=== PATIENT | male | born 1965 | race Caucasian/White ===

== ENCOUNTER 2017-11-24 16:26 | Emergency (ER) | payer OTHER ==
--- NOTE | 2017-11-24 18:04 | EDM.PDOC ---
ED HPI GENERAL MEDICAL PROBLEM - General Chief Complaint: ENT Problem Stated Complaint: FEVER / COLD Time Seen by Provider: 11/24/17 17:50 Source of Information: Reports: Patient History Limitations: Reports: No Limitations - History of Present Illness INITIAL COMMENTS - FREE TEXT/NARRATIVE: 52 yo female presents with 7 day hx of nasal congestion, over the last 48 hours fever, and painful cough. facial pressure. does not smoke. No hx of asthma. Throat Pain Score (Numeric/FACES): 8 - Related Data Allergies Allergy/AdvReac Type Severity Reaction Status Date / Time No Known Allergies Allergy Verified 11/24/17 17:41 Home Meds: Home Meds Losartan [Cozaar] 100 mg PO DAILY 11/24/17 [History] Norethindrone AC-Eth Estradiol [Junel 1 mg-20 Mcg Tablet] 1 tab PO DAILY [History] amLODIPine Besylate [Norvasc] 1 tab PO DAILY 11/24/17 [History] Past Medical History Cardiovascular History: Reports: Hypertension Musculoskeletal History: Reports: Arthritis Social & Family History - Tobacco Use Smoking Status *Q: Never Smoker Second Hand Smoke Exposure: No - Caffeine Use Caffeine Use: Reports: Coffee, Soda - Alcohol Use Days Per Week of Alcohol Use: 4 Number of Drinks Per Day: 2 Total Drinks Per Week: 8 - Recreational Drug Use Recreational Drug Use: No ED ROS ENT - Review of Systems Review Of Systems: See Below Constitutional: Reports: Fever, Chills, Malaise, Fatigue HEENT: Reports: Rhinitis, Sinus Problem, Throat Pain. Denies: Ear Pain, Vertigo Respiratory: Reports: Cough. Denies: Shortness of Breath, Wheezing Cardiovascular: Denies: Chest Pain GI/Abdominal: Denies: Abdominal Pain, Diarrhea Skin: Denies: Rash ED EXAM, ENT - Physical Exam Exam: See Below Exam Limited By: No Limitations General Appearance: Alert, WD/WN, No Apparent Distress Ears: Normal External Exam, Normal Canal, Hearing Grossly Normal, Normal TMs Nose: Injected Turbinates Mouth/Throat: Pharyngeal Erythema, Throat Pain, Throat Swelling (mild), Tonsillar Erythema Head: Atraumatic, Normocephalic Neck: Normal Inspection, Supple, Non-Tender. No: Lymphadenopathy (R), Lymphadenopathy (L) Respiratory/Chest: No Respiratory Distress, Lungs Clear, Normal Breath Sounds. No: Crackles, Rhonchi, Wheezing Cardiovascular: Regular Rate, Rhythm Neurological: Alert, Oriented Skin: Warm, Dry, Intact Course - Vital Signs Last Recorded V/S: Last Vital Signs Temp 37.7 C 11/24/17 17:41 Pulse 110 H 11/24/17 17:41 Resp 18 11/24/17 17:41 BP 150/93 H 11/24/17 17:41 Pulse Ox 96 11/24/17 17:41 Departure - Departure Time of Disposition: 17:57 Disposition: Home, Self-Care 01 Condition: Good Clinical Impression: Sinusitis, acute Qualifiers: Sinusitis location: unspecified location Recurrence: non-recurrent Qualified Code(s): J01.90 - Acute sinusitis, unspecified - Discharge Information Instructions: Sinusitis, Adult, [id number] Referrals: PCP,None [Primary Care Provider] - Forms: ED Department Discharge Additional Instructions: Augmentin 875 mg twice daily for 5 days increase fluid intake with goal of 1.5-2 L per day symptomatic care
== END 2017-11-24 18:17 | disposition home or self-care (01) ==
LOC: JP.ED 16:26
DX: J01.90 Acute sinusitis, unspecified (principal); Z79.899 Other long term (current) drug therapy
CPT/HCPCS: 99283

== ENCOUNTER 2019-05-27 19:05 | Emergency (ER) | payer OTHER ==
[2019-05-27] MEDS ORDERED: LORazepam 0.5 MG Tab PO ONE (20:45)
--- NOTE | 2019-05-27 20:51 | EDM.PDOC ---
ED HPI GENERAL MEDICAL PROBLEM - General Chief Complaint: General Stated Complaint: SHAKY,UNSTEADY ON FEET,DIZZY Time Seen by Provider: 05/27/19 20:35 Source of Information: Reports: Patient, Family, RN History Limitations: Reports: Other (no access to most of her records) - History of Present Illness INITIAL COMMENTS - FREE TEXT/NARRATIVE: 53 yo female from [facility] has a cabin up here. She just got over being treated for pneumonia as an outpatient. Was told at her last visit that she had hyponatremia. Today has weakness and a total body tremor that are new. Here with her male significant other for this. 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: Other (see below) (none) - Related Data Allergies Allergy/AdvReac Type Severity Reaction Status Date / Time azithromycin Allergy Hives Verified 05/27/19 19:54 levofloxacin [From Levaquin] Allergy Hives Verified 05/27/19 19:54 Home Meds: Home Meds Losartan [Cozaar] 100 mg PO DAILY 11/24/17 [History] Norethindrone AC-Eth Estradiol [Junel 1 mg-20 Mcg Tablet] 1 tab PO DAILY [History] amLODIPine Besylate [Norvasc] 1 tab PO DAILY 11/24/17 [History] Escitalopram Oxalate [Lexapro] 20 mg PO DAILY 05/27/19 [History] Past Medical History Cardiovascular History: Reports: Hypertension Other Respiratory History: pneumonia Musculoskeletal History: Reports: Arthritis Psychiatric History: Reports: Anxiety Social & Family History - Tobacco Use Smoking Status *Q: Former Smoker Used Tobacco, but Quit: Yes Month/Year Tobacco Last Used: 12 years ago - Caffeine Use Caffeine Use: Reports: Soda - Recreational Drug Use Recreational Drug Use: No ED ROS GENERAL - Review of Systems Review Of Systems: See Below Constitutional: Reports: Weakness (generalized) HEENT: Reports: No Symptoms Respiratory: Reports: No Symptoms Cardiovascular: Reports: No Symptoms GI/Abdominal: Reports: No Symptoms : Reports: No Symptoms Musculoskeletal: Reports: No Symptoms Skin: Reports: No Symptoms Neurological: Reports: Tremors (generalized) Psychiatric: Reports: No Symptoms ED EXAM, GENERAL - Physical Exam Exam: See Below Exam Limited By: No Limitations General Appearance: Alert, WD/WN, No Apparent Distress Eye Exam: Bilateral Eye: Normal Inspection, PERRL Ears: Normal External Exam, Normal Canal, Hearing Grossly Normal Ear Exam: Bilateral Ear: Auricle Normal, Canal Normal Nose: Normal Inspection, No Blood Throat/Mouth: Normal Inspection, Normal Lips, Normal Oropharynx, Normal Voice, No Airway Compromise Head: Atraumatic, Normocephalic Neck: Normal Inspection Respiratory/Chest: No Respiratory Distress, Lungs Clear, Normal Breath Sounds, No Accessory Muscle Use Cardiovascular: Regular Rate, Rhythm, No Edema, Tachycardia GI/Abdominal: Normal Bowel Sounds, Soft, Non-Tender, No Distention Back Exam: Normal Inspection. No: CVA Tenderness (R), CVA Tenderness (L) Extremities: Normal Inspection, Normal Range of Motion, Non-Tender, No Pedal Edema Neurological: Alert, Oriented, CN II-XII Intact, Normal Cognition, No Motor/ Sensory Deficits, Other (total body tremors, no asterixis) Psychiatric: Normal Affect, Normal Mood Skin Exam: Warm, Dry, Intact, Normal Color, No Rash Course - Vital Signs Text/Narrative:: Feels a lot better after Ativan, admits now to almost daily alcohol consumption. Last Recorded V/S: Last Vital Signs Temp 36.5 C 05/27/19 19:50 Pulse 105 H 05/27/19 19:50 Resp 18 05/27/19 19:50 BP 189/107 H 05/27/19 19:50 Pulse Ox 99 05/27/19 19:50 - Orders/Labs/Meds Labs: Laboratory Tests 05/27/19 05/27/19 05/27/19 Range/Units 20:47 20:47 20:47 WBC 5.9 (4.5-11.0) K/uL RBC 4.16 L (4.30-5.90) M/uL Hgb 13.6 (12.0-15.0) g/dL Hct 40.1 (40.0-54.0) % MCV 96 (80-98) fL MCH 33 H (27-31) pg MCHC 34 (32-36) % Plt Count 210 (150-400) K/uL Sodium 132 L (140-148) mmol/L Potassium 3.4 L (3.6-5.2) mmol/L Chloride 94 L (100-108) mmol/L Carbon Dioxide 26 (21-32) mmol/L Anion Gap 15.4 H (5.0-14.0) mmol/L BUN 8 (7-18) mg/dL Creatinine 0.5 L (0.8-1.3) mg/dL Est Cr Clr Drug Dosing TNP Estimated GFR (MDRD) > 60 (>60) Glucose 116 H (74-106) mg/dL Calcium 9.1 (8.5-10.1) mg/dL Total Bilirubin 0.9 (0.2-1.0) mg/dL AST 39 H (15-37) U/L ALT 44 (12-78) U/L Alkaline Phosphatase 54 (46-116) U/L Total Protein 7.6 (6.4-8.2) g/dL Albumin 4.0 (3.4-5.0) g/dL Globulin 3.6 H (2.3-3.5) g/dL Albumin/Globulin Ratio 1.1 L (1.2-2.2) TSH, Ultra Sensitive 3.750 H (0.358-3.740) uIU/mL Meds: Medications Discontinued Medications Generic Name Dose Route Start Last Admin Trade Name Freq PRN Reason Stop Dose Admin Lorazepam 0.5 mg 05/27/19 20:45 05/27/19 20:53 Ativan PO 05/27/19 20:46 0.5 mg ONETIME ONE Administration Thiamine HCl 100 mg 05/27/19 21:32 Vitamin B-1 PO 05/27/19 21:33 ONETIME ONE Departure - Departure Time of Disposition: 21:40 Disposition: Home, Self-Care 01 Condition: Fair Clinical Impression: Alcohol abuse - Discharge Information *PRESCRIPTION DRUG MONITORING PROGRAM REVIEWED*: No *COPY OF PRESCRIPTION DRUG MONITORING REPORT IN PATIENT RENETTA: No Referrals: PCP,None [Primary Care Provider] - Forms: ED Department Discharge Additional Instructions: Take a multiple vitamin or better yet a B-complex vitamin daily. Use lorazepam as directed for shakes. Recheck with your doctor PAULA. Consider detox for alcohol withdrawal. No alcohol going forward. Recheck as needed.
[2019-05-27] MEDS ORDERED: Thiamine 100 MG Tab PO ONE (21:32)
== END 2019-05-27 21:55 | disposition home or self-care (01) ==
LOC: JP.ED 19:05
DX: F10.10 Alcohol abuse, uncomplicated (principal); Y90.9 Presence of alcohol in blood, level not specified; I10 Essential (primary) hypertension; F41.9 Anxiety disorder, unspecified; Z79.899 Other long term (current) drug therapy; Z87.891 Personal history of nicotine dependence; Z88.1 Allergy status to other antibiotic agents
CPT/HCPCS: 36415; 80053; 84443; 85027; 99284; A9270

== ENCOUNTER 2020-02-26 15:22 | Emergency (ER) | payer OTHER ==
--- NOTE | 2020-02-26 16:00 | EDM.PDOC ---
ED HPI GENERAL MEDICAL PROBLEM - General Chief Complaint: Drug or Alcohol Abuse Stated Complaint: MEDICAL [facility]IA [facility] Time Seen by Provider: 02/26/20 15:59 Source of Information: Reports: Patient History Limitations: Reports: No Limitations, Intoxication - History of Present Illness INITIAL COMMENTS - FREE TEXT/NARRATIVE: 54 years old female patient brought in by ambulance for evaluation. Patient was drinking heavily today. Then [place]. Tripped and fell down. Denies hitting her head. No loss of consciousness. Some people at the stable called ambulance to bring her in for evaluation. Denies any seizure activity. Denies any headache or visual changes. Denies any focal weakness or numbness anywhere. Denies any neck pain or back pain. Denies any chest pain shortness breath. Denies any cough or fever. Denies any abdominal pain diarrhea or constipation. Denies any urinary symptom. Denies any drug use. Denies any suicidal or homicidal thoughts. - Related Data Allergies Allergy/AdvReac Type Severity Reaction Status Date / Time azithromycin Allergy Hives Verified 02/26/20 15:32 levofloxacin [From Levaquin] Allergy Hives Verified 02/26/20 15:32 Home Meds: Home Meds Losartan [Cozaar] 100 mg PO DAILY 11/24/17 [History] amLODIPine Besylate [Norvasc] 1 tab PO DAILY 11/24/17 [History] Escitalopram Oxalate [Lexapro] 20 mg PO DAILY 05/27/19 [History] Past Medical History HEENT History: Reports: None Cardiovascular History: Reports: Hypertension Other Respiratory History: pneumonia Gastrointestinal History: Reports: None Genitourinary History: Reports: None Musculoskeletal History: Reports: Arthritis Neurological History: Reports: None Psychiatric History: Reports: Addiction, Anxiety Other Psychiatric History: ETOH Endocrine/Metabolic History: Reports: None Hematologic History: Reports: None Immunologic History: Reports: None Oncologic (Cancer) History: Reports: None Dermatologic History: Reports: None - Infectious Disease History Infectious Disease History: Reports: Chicken Pox - Past Surgical History Head Surgeries/Procedures: Reports: None Social & Family History - Tobacco Use Smoking Status *Q: Former Smoker Used Tobacco, but Quit: Yes Month/Year Tobacco Last Used: 13 years ago Tobacco Use Comment: chews nicotine gum - Caffeine Use Caffeine Use: Reports: Soda - Alcohol Use Date of Last Drink: 02/26/20 Time of Last Drink: 12:00 - Recreational Drug Use Recreational Drug Use: No ED ROS GENERAL - Review of Systems Review Of Systems: Comprehensive ROS is negative, except as noted in HPI. - Physical Exam Exam: See Below Exam Limited By: No Limitations General Appearance: Alert, WD/WN, No Apparent Distress Ears: Normal External Exam, Normal Canal, Hearing Grossly Normal, Normal TMs Nose: Normal Inspection, Normal Mucosa, No Blood Throat/Mouth: Normal Inspection, Normal Lips, Normal Teeth, Normal Gums, Normal Oropharynx, Normal Voice, No Airway Compromise Head Exam: Atraumatic, Normocephalic Neck: Normal Inspection, Supple, Non-Tender, Full Range of Motion Respiratory/Chest: No Respiratory Distress, Lungs Clear, Normal Breath Sounds, No Accessory Muscle Use, Chest Non-Tender Cardiovascular: Normal Peripheral Pulses, Regular Rate, Rhythm, No Edema, No Gallop, No JVD, No Murmur, No Rub GI/Abdominal: Normal Bowel Sounds, Soft, Non-Tender, No Organomegaly, No Distention, No Abnormal Bruit, No Mass Neuro Exam (Abbreviated): Alert, Oriented, CN II-XII Intact, Normal Cognition, Normal Gait, Normal Reflexes, No Motor/Sensory Deficits Back Exam: Normal Inspection, Full Range of Motion, NT Extremities: Normal Inspection, Normal Range of Motion, Non-Tender, No Pedal Edema, Normal Capillary Refill Skin Exam: Warm, Dry, Intact, Normal Color, No Rash Course - Vital Signs Last Recorded V/S: Last Vital Signs Temp 36.1 C 02/26/20 15:27 Pulse 69 02/26/20 16:51 Resp 16 02/26/20 16:51 BP 132/80 02/26/20 16:51 Pulse Ox 97 02/26/20 16:51 - Orders/Labs/Meds Orders: Active Orders 24 hr Category Date Time Status Sodium Chloride 0.9% [Normal Saline] 1,000 ml Med 02/26/20 16:15 Active IV .BOLUS Medication Orders Sodium Chloride (Normal Saline) 1,000 mls @ 500 mls/hr IV .BOLUS ZACH Last Admin: 02/26/20 16:45 Dose: 500 mls/hr Documented by: PREILOR Labs: Laboratory Tests 02/26/20 02/26/20 02/26/20 Range/Units 16:20 16:20 16:20 WBC 6.0 (4.5-11.0) K/uL RBC 4.49 (4.30-5.90) M/uL Hgb 14.5 (12.0-15.0) g/dL Hct 42.6 (40.0-54.0) % MCV 95 (80-98) fL MCH 32 H (27-31) pg MCHC 34 (32-36) % Plt Count 265 (150-400) K/uL Neut % (Auto) 69 H (36-66) % Lymph % (Auto) 24 (24-44) % [place] % (Auto) 6 (2-6) % Eos % (Auto) 1 L (2-4) % Baso % (Auto) 0 (0-1) % Sodium 136 L (140-148) mmol/L Potassium 4.0 (3.6-5.2) mmol/L Chloride 98 L (100-108) mmol/L Carbon Dioxide 27 (21-32) mmol/L Anion Gap 15.0 H (5.0-14.0) mmol/L BUN 17 D (7-18) mg/dL Creatinine 0.8 D (0.8-1.3) mg/dL Est Cr Clr Drug Dosing 107.28 mL/min Estimated GFR (MDRD) > 60 (>60) Glucose 93 (74-106) mg/dL Calcium 8.6 (8.5-10.1) mg/dL Salicylates 0.8 L (2.0-20.0) mg/dL Urine Opiates Screen (NEGATIVE) Ur Oxycodone Screen (NEGATIVE) Urine Methadone Screen (NEGATIVE) Ur Propoxyphene Screen (NEGATIVE) Acetaminophen 0.0 L (10.0-30.0) ug/mL Ur Barbiturates Screen (NEGATIVE) Ur Tricyclics Screen (NEGATIVE) Ur Phencyclidine Scrn (NEGATIVE) Ur Amphetamine Screen (NEGATIVE) U Methamphetamines Scrn (NEGATIVE) Urine MDMA Screen (NEGATIVE) U Benzodiazepines Scrn (NEGATIVE) U Cocaine Metab Screen (NEGATIVE) U Marijuana (THC) Screen (NEGATIVE) Ethyl Alcohol mg/dL 02/26/20 02/26/20 Range/Units 16:20 17:23 WBC (4.5-11.0) K/uL RBC (4.30-5.90) M/uL Hgb (12.0-15.0) g/dL Hct (40.0-54.0) % MCV (80-98) fL MCH (27-31) pg MCHC (32-36) % Plt Count (150-400) K/uL Neut % (Auto) (36-66) % Lymph % (Auto) (24-44) % [place] % (Auto) (2-6) % Eos % (Auto) (2-4) % Baso % (Auto) (0-1) % Sodium (140-148) mmol/L Potassium (3.6-5.2) mmol/L Chloride (100-108) mmol/L Carbon Dioxide (21-32) mmol/L Anion Gap (5.0-14.0) mmol/L BUN (7-18) mg/dL Creatinine (0.8-1.3) mg/dL Est Cr Clr Drug Dosing mL/min Estimated GFR (MDRD) (>60) Glucose (74-106) mg/dL Calcium (8.5-10.1) mg/dL Salicylates (2.0-20.0) mg/dL Urine Opiates Screen Negative (NEGATIVE) Ur Oxycodone Screen Negative (NEGATIVE) Urine Methadone Screen Negative (NEGATIVE) Ur Propoxyphene Screen Negative (NEGATIVE) Acetaminophen (10.0-30.0) ug/mL Ur Barbiturates Screen Negative (NEGATIVE) Ur Tricyclics Screen Negative (NEGATIVE) Ur Phencyclidine Scrn Negative (NEGATIVE) Ur Amphetamine Screen Negative (NEGATIVE) U Methamphetamines Scrn Negative (NEGATIVE) Urine MDMA Screen Negative (NEGATIVE) U Benzodiazepines Scrn Negative (NEGATIVE) U Cocaine Metab Screen Negative (NEGATIVE) U Marijuana (THC) Screen Negative (NEGATIVE) Ethyl Alcohol 378 mg/dL Meds: Medications Generic Name Dose Route Start Last Admin Trade Name Freq PRN Reason Stop Dose Admin Sodium Chloride 1,000 mls @ 500 mls/hr 02/26/20 16:15 02/26/20 16:45 Normal Saline IV 500 mls/hr .BOLUS ZACH Administration Discontinued Medications Generic Name Dose Route Start Last Admin Trade Name Freq PRN Reason Stop Dose Admin Folic Acid 1 mg 02/26/20 16:09 02/26/20 16:43 Folic Acid PO 02/26/20 16:10 1 mg ONETIME ONE Administration Thiamine HCl 100 mg 02/26/20 16:09 02/26/20 16:43 Vitamin B-1 PO 02/26/20 16:10 100 mg ONETIME ONE Administration - Radiology Interpretation Free Text/Narrative:: Patient was seen and examined shortly after arrival. Stable. Given folic acid, thiamine. Refused normal saline bolus. She has been drinking orally. Lab and imaging reviewed with the patient. Alcohol level 378. She is significantly impaired. She is to it to leave and police was contacted to bring her back. Patient was placed on hold in order to sober up. Patient care transferred to Dr. Mcdonald at time of shift exchange for further management and disposition in a stable condition. Departure - Departure Time of Disposition: 18:34 Disposition: Home, Self-Care 01 Condition: Poor Clinical Impression: Alcohol intoxication - Discharge Information Referrals: PCP,None [Primary Care Provider] - Forms: ED Department Discharge Sepsis Event Note (ED) - Evaluation Sepsis Screening Result: No Definite Risk - Focused Exam Vital Signs: Vital Signs Temp Pulse Resp BP Pulse Ox 02/26/20 16:51 69 16 132/80 97 02/26/20 15:47 75 106/63 02/26/20 15:27 36.1 C 83 16 117/63 94 L 02/26/20 15:23 36.1 C 83 16 117/63 94 L - My Orders Last 24 Hours: My Active Orders 02/26/20 16:15 Sodium Chloride 0.9% [Normal Saline] 1,000 ml IV .BOLUS - Assessment/Plan Last 24 Hours: My Active Orders 02/26/20 16:15 Sodium Chloride 0.9% [Normal Saline] 1,000 ml IV .BOLUS Plan: Patient care transferred to Dr. Mcdonald at time of shift exchange for further management and disposition in a stable condition.
[2020-02-26] MEDS ORDERED: Folic Acid 1 MG Tab PO ONE (16:09)
[2020-02-26] MEDS ORDERED: Thiamine 100 MG Tab PO ONE (16:09)
[2020-02-26] MEDS ORDERED: Sodium Chloride 0.9% 1,000 ML IV SCH (16:15)
--- NOTE | 2020-02-26 17:03 | CRLCT ---
INDICATION: Fell. TECHNIQUE: Scanning of the head was performed without IV contrast material. Coronal reconstructions were obtained. COMPARISON: None. FINDINGS: No intracranial hemorrhage is demonstrated. No positive mass effect is evident. No calvarial or obvious facial fracture is identified. The visualized paranasal and mastoid sinuses are clear. The ventricles and other subarachnoid spaces are larger than expected for the patient`s age, consistent with volume loss. There is some mildly decreased attenuation in the cerebral white matter which may be due to chronic microvascular ischemia or possibly other chronic white matter disease, such as demyelination. IMPRESSION: 1. Negative for acute traumatic abnormality. 2. Mild volume loss. 3. Mildly decreased attenuation in the cerebral white matter which may be due to chronic microvascular ischemia or other chronic white matter disease, such as demyelination. Please note that all CT scans at this facility use dose modulation, iterative reconstruction, and/or weight-based dosing when appropriate to reduce radiation dose to as low as reasonably achievable. Dictated by Aaron Ryan MD @ Feb 26 2020 4:58PM Signed by Dr. Aaron Ryan @ Feb 26 2020 5:02PM
[2020-02-26] MEDS ORDERED: Ibuprofen 400 MG Tab PO ONE (20:46)
== END 2020-02-26 21:35 | disposition home or self-care (01) ==
LOC: JP.ED 15:22 → EDSEX 15:22 → JP.ED 21:35
DX: F10.129 Alcohol abuse with intoxication, unspecified (principal); Y90.8 Blood alcohol level of 240 mg/100 ml or more; F41.9 Anxiety disorder, unspecified; Z79.899 Other long term (current) drug therapy; Z87.891 Personal history of nicotine dependence; Z88.1 Allergy status to other antibiotic agents
CPT/HCPCS: 36415; 70450; 80048; 80305; 80307; 85025; 99285; A9270; J7030

== ENCOUNTER 2021-11-13 18:25 | Emergency (ER) | payer OTHER ==
[2021-11-13] MEDS ORDERED: Cephalexin 250 MG Cap PO ONE (19:44)
[2021-11-13] MEDS ORDERED: OLANZapine 5 MG Tab PO ONE (19:48)
[2021-11-14] MEDS ORDERED: Cephalexin 250 MG Cap ONE (04:47)
== END 2021-11-14 06:40 | disposition home or self-care (01) ==
LOC: JP.ED 18:25
DX: N30.00 Acute cystitis without hematuria (principal); F10.920 Alcohol use, unspecified with intoxication, uncomplicated; I10 Essential (primary) hypertension; Z79.899 Other long term (current) drug therapy; Z88.1 Allergy status to other antibiotic agents
CPT/HCPCS: 36415; 80053; 80305-QW; 80307; 81001; 85025; 99282; 99284; A9270-GY

== ENCOUNTER → 2022-04-03 | Emergency (ER) | payer OTHER ==
[~2022-04-03] MED LIST: Ibuprofen 600 MG Tab ONE; Nicotine 14 MG/24 Hr Patch ONE; Ondansetron 4 MG Tab.DIS ONE
[2022-04-27 14:36] LABS: ESTIMATED GFR 105 mL/min (>60)
== END ==
LOC: JP.ED 23:19
DX: F10.129 Alcohol abuse with intoxication, unspecified (principal); Z20.822 Contact with and (suspected) exposure to COVID-19
CPT/HCPCS: 36415; 80053; 80307; 85027; 87635; 99284; A9270; Q0162; 85025; U0002

== ENCOUNTER 2022-05-07 08:28 | Emergency (ER) | payer OTHER ==
[2022-05-07] MEDS ORDERED: LORazepam 0.5 MG Tab PO ONE (10:04)
== END 2022-05-07 10:17 | disposition home or self-care (01) ==
LOC: JP.ED 08:28
DX: J06.9 Acute upper respiratory infection, unspecified (principal); I10 Essential (primary) hypertension; M19.90 Unspecified osteoarthritis, unspecified site; Z88.1 Allergy status to other antibiotic agents; Z79.899 Other long term (current) drug therapy; Z20.822 Contact with and (suspected) exposure to COVID-19
CPT/HCPCS: 81001; 87635; 99283; A9270; U0002

== ENCOUNTER 2024-02-22 04:03 | Emergency (ER) | payer OTHER ==
[2024-02-22] MEDS: Ondansetron 4 MG Tab.DIS PO ONE (05:10)
[2024-02-22] MEDS: LORazepam 1 MG Tab PO ONE (05:10)
== END 2024-02-22 05:25 | disposition home or self-care (01) ==
LOC: JP.ED 04:03
DX: F10.10 Alcohol abuse, uncomplicated (principal); I10 Essential (primary) hypertension; Z79.899 Other long term (current) drug therapy; Z88.1 Allergy status to other antibiotic agents
CPT/HCPCS: 99283; A9270; Q0162

== ENCOUNTER 2024-03-19 11:14 | Emergency (ER) | payer OTHER | END 2024-03-19 13:30 | disposition home or self-care (01) | LOC: JP.ED 11:14 | DX: F10.120 Alcohol abuse with intoxication, uncomplicated (principal); I10 Essential (primary) hypertension; Z79.899 Other long term (current) drug therapy; Z88.1 Allergy status to other antibiotic agents | CPT/HCPCS: 99284 ==